=== PATIENT | female | born 1940 | race Two or more races ===

== ENCOUNTER 2019-12-24 13:40 | Outpatient (CLI) | payer MEDICARE, MEDICAID ==
[~2019-12-24] VITALS: Ht 134.6 cm; Wt 58.5 kg
[2019-12-24 15:53] VITALS: BP 138/77
--- NOTE | 2019-12-24 20:15 | Consultation ---
DATE OF CONSULTATION: 12/24/2019 CHIEF COMPLAINT: Referral for screening colonoscopy. HISTORY OF PRESENT ILLNESS: This is a very pleasant 79-year-old female with numerous medical problems, which I will dictate in a second, was referred to us for screening colonoscopy evaluation. Also, the patient has history of malignancy, complained of chronic GERD and needs endoscopy. PAST MEDICAL HISTORY: 1. History of kidney cancer. 2. Pulmonary nodules. 3. Hypertension. 4. Depression. PAST SURGICAL HISTORY: 1. Right lung surgery. 2. Nephrectomy. MEDICATIONS: Amlodipine, atenolol. FAMILY HISTORY: No family history of GI malignancies. SOCIAL HISTORY: The patient denies any tobacco, alcohol, or drug abuse. ALLERGIES: No known drug allergy. REVIEW OF SYSTEMS: A 10-point review of systems was performed and pertinent positives in HPI. PHYSICAL EXAMINATION: VITAL SIGNS: Temperature 98.7, blood pressure 138/77, pulse 65, respirations 20. Height is 4 feet 5 inches, weight is 129. HEENT: Normocephalic and atraumatic. Sclerae anicteric. NECK: Supple. No evidence of obvious lymphadenopathy. CARDIOVASCULAR: Regular rate and rhythm. Plus S1 and S2. LUNGS: Decreased breath sounds bilaterally based on the supine exam. ABDOMEN: Soft, nontender. No rebound. No guarding. No peritoneal sign. EXTREMITIES: No cyanosis, no clubbing, no edema. ASSESSMENT AND PLAN: The patient is an 79-year-old female with multiple medical problems, needs screening colonoscopy, also complained of chronic GERD. The patient is scheduled for this coming Tuesday to come for endoscopy and colonoscopy. The patient was informed of the risks and benefits of procedure. The prep was explained to her and instruction was given to her. The patient to come back on Tuesday for procedure. I want to thank, Dr. Escalante, for this kind referral. Santo Calhoun M.D. DR: Sarah JOB#: [id number] CC: Ava Holland M.D.; Fax#: [phone]
[2019-12-25] MEDS ORDERED: VITAMIN D PO (13:22)
[2019-12-25] MEDS ORDERED: PATANOL1 DROP OD (13:22)
[2019-12-25] MEDS ORDERED: NORVASC5 MG ORAL (13:22)
[2019-12-25] MEDS ORDERED: CALCIUM500 M3 PO (13:22)
[2019-12-25] MEDS ORDERED: HYDROCHLOROTHIA25 MG ORAL (13:22)
[2019-12-25] MEDS ORDERED: TRAMADOL HCL50 MG ORAL (13:22)
[2019-12-25] MEDS ORDERED: ATENOLOL25 MG ORAL (13:22)
[2019-12-25] MEDS ORDERED: XANAX0.25 MG ORAL (13:22)
[2019-12-25] MEDS ORDERED: AMLODIPINE BESYL5 MG ORAL (13:22)
== END 2019-12-24 15:40 | disposition home or self-care (01) ==
LOC: PAN 13:40
DX: K21.9 Gastro-esophageal reflux disease without esophagitis (principal); I10 Essential (primary) hypertension; F32.9 Major depressive disorder, single episode, unspecified; Z90.5 Acquired absence of kidney; Z85.528 Personal history of other malignant neoplasm of kidney
CPT/HCPCS: G0463